=== PATIENT | female | born 1990 | race Caucasian/White ===

== ENCOUNTER 2016-11-29 17:27 | Emergency (ER) | payer OTHER ==
[2016-11-29] MEDS ORDERED: IOPAMIDOL 370 (76%) 100 ML VIAL IV ONE (17:28)
[2016-11-29] MEDS ORDERED: ONDANSETRON 4 MG/2ML 2 ML VIAL ONE (18:09)
[2016-11-29] MEDS ORDERED: HYDROMORPHONE HCL 1 MG/ML SYRINGE ONE (18:09)
[2016-11-29 18:21] LABS: ABSOLUTE NEUTROPHIL COUNT 3.3 K/mm3 (1.8-7.7); BASO % 0.5 % (0.2-1.0); EOS % 0.5 % (0.9-2.9); HEMATOCRIT 42.6 % (37.0-47.0); HEMOGLOBIN 14.3 gm/l (12.0-16.0); IMM NEUT% 0.2 % (0-1); LYMPH % 34.2 % (15-45); MEAN CELL VOLUME 92.4 fl (81.0-99.0); MEAN CORPUSCULAR HGB CONC 33.6 g/dl (33.0-37.0); MEAN PLATELET VOLUME 10.2 fl (7.4-10.4); MONO # 0.5 (0.0-0.8); MONO % 8.7 % (4-12); NEUT % 55.9 % (43-75); PLATELET COUNT 370 K/mm3 (130-400); RED CELL DISTRIBUTION WIDTH 11.5 % (11.5-14.5)
[2016-11-29 18:23] LABS: SPECIFIC GRAVITY 1.015 (1.001-1.030); URINE BILIRUBIN NEGATIVE (NEGATIVE); URINE BLOOD NEGATIVE (NEGATIVE); URINE GLUCOSE (UA) NEGATIVE (NEGATIVE); URINE LEUKOCYTE ESTERASE NEGATIVE (NEGATIVE); URINE NITRITE NEGATIVE (NEGATIVE); URINE PROTEIN NEGATIVE (NEGATIVE); URINE UROBILINOGEN NORMAL (0-1 mg/dl)
[2016-11-29 18:24] LABS: URINE APPEARANCE CLEAR; URINE COLOR YELLOW
[2016-11-29 18:25] LABS: HCG,QUALITATIVE URINE NEGATIVE
[2016-11-29 18:38] LABS: ALB/GLOB RATIO 1.4 (>1.0); ALBUMIN 4.8 gm/dL (3.5-5.7); CALCIUM 9.7 mg/dL (8.6-10.3)
--- NOTE | 2016-11-29 19:04 | CT ---
Name: SHARON ARROYO Exam: CT abdomen pelvis with contrast Comparison: None History: Lower abdominal pain Procedure: Helical CT using multidetector technique was applied to the abdomen and pelvis during intravenous administration of 100 cc Isovue-[id number]. No oral contrast was given per ordering physician. An automated dose reduction technique was used to minimize patient radiation dose. Findings: CT abdomen (contrast enhanced): Lung bases are clear. Heart is not enlarged. There is no pericardial effusion. Liver, gallbladder, bile ducts, pancreas, spleen, adrenal glands, kidneys, aorta, IVC and portal vein are within normal limits. Stomach, small bowel and colon are within normal limits. There is no free air free fluid or adenopathy. Regional skeleton is within normal limits. There is a small fat filled umbilical hernia. CT pelvis (contrast enhanced): Bladder is empty. Uterus is retroverted and there is a centrally located IUD. Ovaries are symmetric. Small bowel is not dilated. The appendix is not identified as a separate anatomic structure but there are no current CT features of appendicitis. There is no free air, free fluid or suspicious adenopathy. Impression: 1. Nonvisualization of the appendix. There are no current CT features of appendicitis. 2. No bowel obstruction 3. Retroverted uterus containing an IUD Note: The above report was uploaded to [facility]'s electronic medical records system at 1900 hours.
== END 2016-11-29 20:01 | disposition home or self-care (01) ==
LOC: ED 17:27
DX: R10.9 Unspecified abdominal pain (principal); R11.10 Vomiting, unspecified
CPT/HCPCS: 83690; 81025; 85025; 80053; 81003; 74177; 96375; 99284 ×2; 96374; J1170; J2405; Q9967